=== PATIENT | female | born 1965 | race Caucasian/White ===

== ENCOUNTER → 2016-12-01 | Outpatient (REF) | LOC: LAB 16:55 | DX: Z01.89 Encounter for other specified special examinations (principal) ==

== ENCOUNTER → 2019-11-18 | Outpatient (CLI) | payer BC | LOC: RAD 16:09 | DX: M16.12 Unilateral primary osteoarthritis, left hip (principal); M25.562 Pain in left knee ==

== ENCOUNTER → 2020-02-17 | Outpatient (CLI) | payer BC | LOC: AMSURD 16:41 | DX: Z01.818 Encounter for other preprocedural examination (principal); M16.12 Unilateral primary osteoarthritis, left hip ==

== ENCOUNTER 2020-03-08 16:30 | Outpatient (RCR) | payer BC | END 2020-03-08 17:00 | disposition still patient (30) | LOC: PT 16:30 | DX: Z11.59 Encounter for screening for other viral diseases (principal); M16.12 Unilateral primary osteoarthritis, left hip ==

== ENCOUNTER → 2020-05-18 | Outpatient (REF) | LOC: LAB 12:06 | DX: Z01.818 Encounter for other preprocedural examination (principal) ==

== ENCOUNTER → 2020-10-29 | Outpatient (CLI) | payer BC | LOC: RAD 11:38 | DX: M16.11 Unilateral primary osteoarthritis, right hip (principal); Z96.642 Presence of left artificial hip joint ==

== ENCOUNTER → 2020-11-09 | Outpatient (REF) | LOC: LAB 15:36 | DX: R35.0 Frequency of micturition (principal) ==

== ENCOUNTER 2021-05-27 20:10 | Emergency (ER) | payer BC ==
[~2021-05-27] VITALS: Ht 165.1 cm; Wt 88.6 kg
[2021-05-27] MEDS ORDERED: PERCOCET 325 MG1 TA2 PO (22:51)
[2021-05-27 23:14] VITALS: BP 122/72
== END 2021-05-27 23:14 | disposition home or self-care (01) ==
LOC: ED 20:10
DX: S42.211A Unspecified displaced fracture of surgical neck of right humerus, initial encounter for closed fracture (principal); F17.200 Nicotine dependence, unspecified, uncomplicated; W01.0XXA Fall on same level from slipping, tripping and stumbling without subsequent striking against object, initial encounter
CPT/HCPCS: A4565; J1885; J3010

== ENCOUNTER → 2022-07-07 | Outpatient (CLI) | payer BC ==
[~2022-07-07] MED LIST: AMLODIPINE BESYL5 MG PO; CELECOXIB200 M1 PO; LOSARTAN POTASS50 M1 PO; PERCOCET 325 MG1 TA2 PO
[2022-07-07 17:03] LABS: BASO # 0.04 K/mm3 (0.02-0.10); EOS # 0.14 K/mm3 (0.04-0.40); EOS % 1.7 % (1.0-5.0); HEMATOCRIT 45.3 % (37.0-47.0); HEMOGLOBIN 14.8 g/dL (12.5-16.0); LYMPH# 2.33 K/mm3 (1.50-4.00); MEAN CELL VOLUME 100 fl (78-100); MEAN CORPUSCULAR HEMOGLOBIN 33 pg (27-31); MEAN CORPUSCULAR HGB CONC 33 g/dL (33-37); MEAN PLATELET VOLUME 9.6 fl (7.4-10.4); MONO # 0.54 K/mm3 (0.20-0.80); NEU # 5.29 K/mm3 (1.40-6.50); PLATELET COUNT 252 K/mm3 (130-400); RED BLOOD COUNT 4.55 M/mm3 (4.10-5.30); RED CELL DISTRIBUTION WIDTH 11.9 % (11.5-14.5); WHITE BLOOD COUNT 8.4 K/mm3 (4.8-10.8)
[2022-07-07 17:09] LABS: ALBUMIN 4.4 g/dL (3.5-5.0); POTASSIUM 3.9 mmol/L (3.5-5.1)
[2022-07-07 17:10] LABS: CALCIUM 9.8 mg/dL (8.3-10.5)
[2022-07-07 17:11] LABS: TOTAL PROTEIN 7.3 g/dL (6.4-8.3)
[2022-07-07 17:13] LABS: TOTAL BILIRUBIN 0.6 mg/dL (0.2-1.2); URINE APPEARANCE CLEAR; URINE BILIRUBIN NEGATIVE (NEGATIVE); URINE BLOOD NEGATIVE (NEGATIVE); URINE COLOR DARK YELLOW; URINE GLUCOSE NEGATIVE (NEGATIVE); URINE KETONE 1+ (NEGATIVE); URINE LEUKOCYTE ESTERASE NEGATIVE (NEGATIVE); URINE MUCUS PRESENT (NOT PRESENT); URINE NITRATE NEGATIVE (NEGATIVE); URINE PROTEIN(semi-quant) NEGATIVE (NEGATIVE); URINE UROBILINOGEN NORMAL (NORMAL); URINE WBC 0-1 /hpf (0-3)
== END ==
LOC: LAB 16:22
PROVIDERS: Physician Assistant
DX: Z01.812 Encounter for preprocedural laboratory examination (principal); Z13.220 Encounter for screening for lipoid disorders; M16.11 Unilateral primary osteoarthritis, right hip; I10 Essential (primary) hypertension

== ENCOUNTER 2022-07-09 10:57 | Emergency (ER) | payer BC ==
[~2022-07-09] VITALS: Ht 162.6 cm; Wt 77.2 kg
[~2022-07-09 10:57] MED LIST changes: -AMLODIPINE BESYL5 MG PO; -CELECOXIB200 M1 PO; -LOSARTAN POTASS50 M1 PO
[2022-07-09] MEDS ORDERED: AMLODIPINE BESYL5 MG PO (11:12)
[2022-07-09] MEDS ORDERED: LOSARTAN POTASS50 M1 PO (11:13)
[2022-07-09] MEDS ORDERED: CELECOXIB200 M1 PO (11:14)
[2022-07-09 14:26] VITALS: BP 150/103
== END 2022-07-09 14:27 | disposition home or self-care (01) ==
LOC: ED 10:57
DX: I10 Essential (primary) hypertension (principal); F41.9 Anxiety disorder, unspecified; Z28.310 Unvaccinated for COVID-19

== ENCOUNTER → 2024-03-27 | Outpatient (CLI) | payer BC ==
[~2024-03-27] MED LIST changes: +AMLODIPINE BESYL5 MG PO; +CELECOXIB200 M1 PO; +LOSARTAN POTASS50 M1 PO
== END ==
LOC: RAD 11:55
DX: M25.562 Pain in left knee (principal)